=== PATIENT | female | born 1975 ===

== ENCOUNTER 2021-11-12 10:41 | Emergency (ER) | payer SELFPAY ==
[~2021-11-12] VITALS: Ht 175.3 cm; Wt 70.6 kg
[2021-11-12 10:42] VITALS: BP 119/71
[2021-11-12] MEDS ORDERED: PROZ40CA PO (10:56)
[2021-11-12] MEDS ORDERED: HYOS1TAB PO (10:56)
== END 2021-11-12 12:22 | disposition left against medical advice (07) ==
LOC: M ED 10:41
DX: Z53.21 Procedure and treatment not carried out due to patient leaving prior to being seen by health care provider (principal)